=== PATIENT | male | born 1950 ===

== ENCOUNTER 2021-08-26 14:01 | Outpatient (CLI) | payer OTHER ==
[~2021-08-26 14:01] MED LIST: ASA81 MG PO; DICLOFENAC SOD100 G1 TP; NORFLEX100MG PO; PLAVIX75 MG PO; [UNRECOGNIZED DRUG - OTHER]; [UNRECOGNIZED DRUG - OTHER]
== END 2021-08-26 14:04 | disposition home or self-care (01) ==
LOC: LAB 14:01
PROVIDERS: ATTEND Urology
DX: R97.20 Elevated prostate specific antigen [PSA] (principal)

== ENCOUNTER 2021-10-09 07:09 | Outpatient (CLI) | payer OTHER | END 2021-10-09 07:17 | disposition home or self-care (01) | LOC: SONOGRAMA 07:09 | PROVIDERS: ATTEND Urology | DX: C61 Malignant neoplasm of prostate (principal); D29.1 Benign neoplasm of prostate; R97.20 Elevated prostate specific antigen [PSA] ==

== ENCOUNTER 2021-11-20 07:17 | Outpatient (CLI) | payer OTHER | END 2021-11-20 07:52 | disposition home or self-care (01) | LOC: NUCLEAR 07:17 | PROVIDERS: ATTEND Urology | DX: C61 Malignant neoplasm of prostate (principal); N40.1 Benign prostatic hyperplasia with lower urinary tract symptoms | CPT/HCPCS: 78803; A9503 ==